=== PATIENT | male | born 1990 | race Two or more races ===

== ENCOUNTER 2020-05-18 09:15 | Outpatient (CLI) | payer OTHER ==
--- NOTE | 2020-05-18 11:22 | MRI Report ---
PROCEDURE: Shoulder RT W/O INDICATIONS: SHOULDER PAIN TECHNIQUE: Noncontrast oblique coronal T2 fast spin echo with fat saturation, oblique sagittal T1 spin echo and T2 fast spin echo with fat saturation, axial T1 spin echo and T2 fast spin echo with fat saturation t hrough the shoulder. COMPARISON: None. FINDINGS: Image quality: Excellent. Rotator cuff: There is mild supraspinatus and infraspinatus tendinosis. The teres minor tendon is in tact. There is mild to moderate subscapularis tendinosis. No significant rotator cuff muscle atrophy is seen. Bones and bursae: No acute bone marrow contusions or fractures. Chronic traction cystic changes are seen at the posterosuperior humeral head. Mild to moderate degenerative changes are seen at the a cromioclavicular joint. No pathologic subacromial/subdeltoid bursal fluid is present. No significant glenohumeral joint effusion is present. Capsule and soft tissues: In the absence of intra-articular contrast, the labrum appears intact. Th e long head of the biceps tendon demonstrates normal location and morphology. There is partial effac ement of the normal fat signal in the rotator interval. The inferior endovaginal glenohumeral ligame nts are mildly thickened. IMPRESSION: 1. Mild rotator cuff tendinosis involving the supraspinatus, infraspinatus, and subscapularis tendon s. No significant rotator cuff tendon tear is seen. 2. Mild to moderate acromioclavicular joint osteoarthrosis. 3. Partial effacement of the rotator interval fat and mild thickening of the inferior endometrial gl enohumeral ligaments are nonspecific, but can be seen in the setting of the clinical syndrome of adhe sive capsulitis. Reviewed by: Kirill Madrid MD on 05/18/2020 11:21 AM PST Approved by: Kirill Madrid MD on 05/18/2020 11:21 AM PST Station ID: [id number]
== END 2020-05-18 09:16 | disposition home or self-care (01) ==
LOC: DI 09:15
PROVIDERS: ATTEND Family Medicine
DX: M75.81 Other shoulder lesions, right shoulder (principal); M19.011 Primary osteoarthritis, right shoulder; R93.6 Abnormal findings on diagnostic imaging of limbs

== ENCOUNTER 2020-07-16 07:50 | Outpatient (CLI) | payer OTHER ==
--- NOTE | 2020-07-16 10:19 | MRI Report ---
PROCEDURE: Cervical Spine W/O INDICATIONS: MONOPLEGIA OF UPPER LIMB TECHNIQUE: Noncontrast sagittal T1 spin echo and T2 fast spin echo, sagittal STIR, foraminal oblique sagittal T2 fast spin echo, and axial gradient echo or T2 fast spin echo through the cervical spine. COMPARISON: None. FINDINGS: Image quality: Excellent. Alignment and Curvature: There is normal bony alignment. Bone Marrow: Marrow demonstrates normal overall signal. Spinal Cord: Visualized spinal cord has normal size and signal. No cerebellar tonsillar herniation. Paraspinous Soft Tissues: No paravertebral masses. Prevertebral soft tissues are normal in thicknes s. C2-C3: No spinal canal or neural foraminal stenosis. No significant degenerative changes. C3-C4: No spinal canal or neural foraminal stenosis. No significant degenerative changes. C4-C5: No spinal canal or neural foraminal stenosis. No significant degenerative changes. C5-C6: Facet and uncovertebral hypertrophy contribute to mild bilateral neural foraminal stenosis. N o spinal canal narrowing. C6-C7: No spinal canal or neural foraminal stenosis. No significant degenerative changes. C7-T1: No spinal canal or neural foraminal stenosis. No significant degenerative changes. IMPRESSION: Mild degenerative changes at C5-C6. Reviewed by: Junior Cooper MD on 07/16/2020 10:18 AM PST Approved by: Junior Cooper MD on 07/16/2020 10:18 AM PST Station ID: [id number]
== END 2020-07-16 07:51 | disposition home or self-care (01) ==
LOC: DI 07:50
PROVIDERS: ATTEND Orthopaedic Surgery
DX: G83.20 Monoplegia of upper limb affecting unspecified side (principal); M47.812 Spondylosis without myelopathy or radiculopathy, cervical region